=== PATIENT | male | born 1950 | race Two or more races ===

== ENCOUNTER 2024-01-18 16:30 | Emergency (ER) | payer OTHER ==
[~2024-01-18] VITALS: Ht 182.9 cm; Wt 91.2 kg
[2024-01-18] MEDS ORDERED: DILTIAZEM ER180 M3 PO (17:14)
[2024-01-18] MEDS ORDERED: DUTASTERIDE-TA1 EACH PO (17:14)
[2024-01-18] MEDS ORDERED: ALPRAZOLAM ODT0.5 MG PO (17:14)
[2024-01-18] MEDS ORDERED: XELPROS2.5 ML OP (17:14)
[2024-01-18] MEDS ORDERED: SIMVASTATIN5 MG PO (17:15)
[2024-01-18] MEDS ORDERED: COZAAR100 MG PO (17:15)
[2024-01-18] MEDS ORDERED: OMEPRAZOLE40 MG PO (17:15)
[2024-01-18] MEDS ORDERED: PAMELOR10 MG PO (17:15)
[2024-01-18] MEDS ORDERED: TOPROL XL50 M1 PO (17:15)
[2024-01-18] MEDS ORDERED: ADCIRCA20 MG PO (17:16)
[2024-01-18 18:57] LABS: HEMATOCRIT 46.2 % (39.0-48.0); HEMOGLOBIN 16.1 g/dL (13-16.00); MEAN CELL VOLUME 89.9 fL (80.0-100.00); MEAN CORPUSCULAR HEMOGLOBIN 31.3 pg (27.00-32.0); MEAN CORPUSCULAR HGB CONC 34.9 g/dl (32.0-36.0); PLATELET COUNT 162 K/uL (150-450); RED BLOOD COUNT 5.14 M/uL (4.00-6.00); RED CELL DISTRIBUTION WIDTH 13.6 % (11.5-14.5)
[2024-01-18 19:10] LABS: INR 0.97; PARTIAL THROMBOPLASTIN TIME 29.2 SECONDS (22.0-34.0); PROTHROMBIN TIME 10.6 SECONDS (9.0-11.5)
[2024-01-18 19:14] LABS: ALBUMIN 4.5 gm/dL (3.4-5.0); BILIRUBIN TOTAL 0.56 mg/dL (0.3-1.2); CREATININE SERUM 1.05 mg/dL (0.70-1.30); GFR 68.86; GLOBULINA 3.8 G/DL (2.4-3.5); POTASSIUM 4.31 mEq/L (3.5-5.1); TOTAL PROTEIN 8.3 gm/dL (6.4-8.2)
[2024-01-18] MEDS ORDERED: SODIUM CHLORIDE 0.45 % 1,000 ML IV SCH (19:45)
== END 2024-01-18 21:18 | disposition designated cancer center or children's hospital (05) ==
LOC: ER 16:30
PROVIDERS: General Practice
DX: S09.8XXA Other specified injuries of head, initial encounter (principal); S06.5XAA Traumatic subdural hemorrhage with loss of consciousness status unknown, initial encounter; W19.XXXA Unspecified fall, initial encounter; Y93.89 Activity, other specified; Y92.59 Other trade areas as the place of occurrence of the external cause; Y99.8 Other external cause status; M12.569 Traumatic arthropathy, unspecified knee; I10 Essential (primary) hypertension

== ENCOUNTER 2024-01-20 14:25 | Emergency (ER) | payer OTHER ==
[~2024-01-20] VITALS: Ht 188 cm; Wt 113.4 kg
[~2024-01-20 14:25] MED LIST: ADCIRCA20 MG PO; ALPRAZOLAM ODT0.5 MG PO; COZAAR100 MG PO; DILTIAZEM ER180 M3 PO; DUTASTERIDE-TA1 EACH PO; OMEPRAZOLE40 MG PO; PAMELOR10 MG PO; SIMVASTATIN5 MG PO; TOPROL XL50 M1 PO; XELPROS2.5 ML OP
[2024-01-20 17:16] LABS: HEMATOCRIT 40.7 % (39.0-48.0); HEMOGLOBIN 14.4 g/dL (13-16.00); MEAN CELL VOLUME 88.6 fL (80.0-100.00); MEAN CORPUSCULAR HEMOGLOBIN 31.3 pg (27.00-32.0); MEAN CORPUSCULAR HGB CONC 35.4 g/dl (32.0-36.0); PLATELET COUNT 192 K/uL (150-450); RED BLOOD COUNT 4.59 M/uL (4.00-6.00); RED CELL DISTRIBUTION WIDTH 13.3 % (11.5-14.5)
[2024-01-20 17:28] LABS: PH,URINE 5.5 (5.0-8.0); URINE APPEARANCE Clear; URINE BILIRRUBIN Negative (NEGATIVE); URINE BLOOD Negative; URINE COLOR Yellow; URINE GLUCOSE Negative (NEGATIVE); URINE KETONE 15 (NEGATIVE); URINE LEUKOCYTE Negative; URINE NITRATE Negative; URINE PROTEIN Trace (NEGATIVE); URINE UROBILINOGEN 0.2 E.U./dl
[2024-01-20 17:29] LABS: URINE BACTERIA 9.7 uL (0.0-1933); URINE EPITHELIAL CELLS 7.4 uL (0.0-38.8)
[2024-01-20 17:32] LABS: URINE CAST 0.14 uL (0.0-1.40)
[2024-01-20 17:45] LABS: ALBUMIN 3.9 gm/dL (3.4-5.0); BILIRUBIN TOTAL 1.32 mg/dL (0.3-1.2); CALCIUM 9.4 mg/dL (8.5-10.1); CREATININE SERUM 1.57 mg/dL (0.70-1.30); GFR 43.28; POTASSIUM 5.84 mEq/L (3.5-5.1); TOTAL PROTEIN 7.9 gm/dL (6.4-8.2)
[2024-01-20 19:32] LABS: INR 1.05; PROTHROMBIN TIME 11.4 SECONDS (9.0-11.5)
[2024-01-20 19:36] LABS: PARTIAL THROMBOPLASTIN TIME < 20.0 SECONDS (22.0-34.0)
[2024-01-21] MEDS ORDERED: LABETALOL HCL 20MG/4ML SYRINGE IV STA (00:38)
== END 2024-01-21 04:09 | disposition designated cancer center or children's hospital (05) ==
LOC: ER 14:25
PROVIDERS: General Practice; Internal Medicine
DX: I62.02 Nontraumatic subacute subdural hemorrhage (principal); I10 Essential (primary) hypertension; Z20.822 Contact with and (suspected) exposure to COVID-19; R47.01 Aphasia
CPT/HCPCS: 36415; 74176; 96365; 99285; J3490